=== PATIENT | female | born 1945 | race Caucasian/White ===

== ENCOUNTER 2024-04-06 07:05 | Day surgery (SDC) | payer MEDICARE, OTHER ==
[~2024-04-06] VITALS: Ht 154.9 cm; Wt 45.9 kg
[~2024-04-06 07:05] MED LIST: AMLODIPINE BES2.5 MG PO; CETIRIZINE HCL10 M1 PO; COREG25 MG PO; IBLOOD GLUCOSE TEST STRIP 1 EA TEST VI PRN; LACTATED RINGER'S 1,000 ML IV SCH; LIDOCAINE HCL 1% 5 ML SDV INJ ONE; LIPITOR20 MG; MIDAZOLAM HCL 5 MG/5 ML VIAL IV PRN; MYCO NAIL30 ML TOP; VITAMIN D350 MCG PO; fentaNYL citrate 100 MCG/2 ML VIAL IV PRN
[2024-04-06 07:43] VITALS: BP 116/65
[2024-04-06] MEDS ORDERED: fentaNYL citrate 100 MCG/2 ML VIAL ONE (08:04)
[2024-04-06] MEDS ORDERED: MIDAZOLAM HCL 5 MG/5 ML VIAL ONE (08:04)
--- NOTE | 2024-04-06 09:18 | NUR ---
04/06/24 0918 Anette,Marysol 0912 PT ARRIVED TO PACU ON 3L VIA NC, PT WAKES EASILY AND DENIES PAIN AND NAUSEA. PT ENCOAURGED TO PASS GAS AND IS RESTING WITH EYES CLOSED. RESP EVEN AND UNLABORED.
[2024-04-06 10:00] VITALS: BP 116/71
--- NOTE | 2024-04-07 06:30 | OR ---
[facility] [address] [place], [place] [address] Signed DATE OF OPERATION: 04/06/2024 SURGEON: Yamilex Bradshaw MD PREOPERATIVE DIAGNOSES: 1. Rectal bleeding and mucus discharge. 2. Diverticulosis. POSTOPERATIVE DIAGNOSES: 1. Mild proctitis. 2. 5 mm and 3 mm polyp in proximal right colon (snare). 3. 5 mm polyps x2 at base of cecum (snare). 4. Moderate pandiverticulosis. 5. Tortuous sigmoid colon. PROCEDURES: Colonoscopy with cold biopsies of the distal, middle and proximal rectum and hot biopsy along with snare polypectomy x2. ESTIMATED BLOOD LOSS: None. INDICATIONS: Jane is a 79-year-old female, asked to see me for a colonoscopy. I helped her with a colonoscopy in 2010 at the age of 65. This was her one and only screening colonoscopy. She had some diverticulosis. She had done well with Versed and fentanyl. She had been asked to follow up in 10 years. More recently, she had some bloody mucousy discharge from her anus. She told me it lasted a couple months or so. She thinks it is better. Her primary care provider asked her to come and see me for followup colonoscopy. She cannot recall any family history of colon cancer or polyps. She remains independent and drives around town and does well with her functional status. She had sold the house and now lives in an apartment. I had given her a brochure on colonoscopy. We had reviewed the nature of the test. There is risk including, but not limited to gas bloating, crampy abdominal pain, bleeding, perforation requiring surgery, and missed diagnosis. We also reviewed the written instructions for the bowel prep line by line. She also understands the need for IV conscious sedation. She understands an adult person has to take her home afterwards. She had expressed understanding and wished to proceed. DESCRIPTION OF PROCEDURE: Jane was taken into our endoscopy suite and placed in the left lateral decubitus Electronically Signed By: YAMILEX BRADSHAW MD 04/07/24 0630 PATIENT NAME: JANE HALE OPERATIVE REPORT DATE OF : 45 REPORT #: [id number] PHYSICIAN: YAMILEX BRADSHAW MD PCP: AZAM ALEJO DO REPORT IS CONFIDENTIAL AND NOT TO BE RELEASED WITHOUT AUTHORIZATION [facility] [address] [place], [place] [address] Signed position. She was given 5 mg of Versed and 75 mcg of fentanyl to cover the case. A digital rectal exam was performed and she had good sphincter tone. Really very little in the way of any external hemorrhoid tissue. There were no masses. The adult colonoscope was then introduced and she had some mild diffuse inflammation of the rectum. I went ahead and took a biopsy just above the anal canal, then middle and proximal rectum with cold biopsy forceps. The scope was then advanced to a very tortuous sigmoid colon and passed nicely around up to the cecum. It took a little extra sedation and abdominal compression get the scope around. Her prep was very good. She had two 5 mm polyps [id number] just next to the appendiceal orifice. We placed a wire over both and took those off and suctioned through the scope for pathologic review. In the proximal right colon, she had one 5 mm polyp which we required a combination of the snare and hot biopsy forceps and removed completely and then just to the side of it was a tiny 3 mm polyp easily removed with the hot biopsy forceps and placed in the same specimen jar. As the scope was withdrawn, she did have a few diverticula in the right colon, but mostly in the left and sigmoid colon. They were moderate in size, moderate in number and scattered about. Once again, her sigmoid colon is quite tortuous. Once in the rectum, the scope was retroflexed and there was no additional pathology noted above the anal canal. After this, the gas was suctioned out and the colonoscope removed. Jane tolerated the procedure quite well. RECOMMENDATIONS: I will see Jane back in my office in 7 to 14 days to review her results. Yamilex Bradshaw MD ALB/MODL /[id number] cc: MD Azam Avalos DO Copies: YAMILEX BRADSHAW MD Electronically Signed By: YAMILEX BRADSHAW MD 04/07/24 0630 PATIENT NAME: JANE HALE OPERATIVE REPORT DATE OF : 45 REPORT #: [id number] PHYSICIAN: YAMILEX BRADSHAW MD PCP: AZAM ALEJO DO REPORT IS CONFIDENTIAL AND NOT TO BE RELEASED WITHOUT AUTHORIZATION [address] [address] Signed AZAM ALEJO DO ~ Electronically Signed By: YAMILEX BRADSHAW MD 04/07/24 0630 PATIENT NAME: JANE HALE OPERATIVE REPORT DATE OF : 45 REPORT #: [id number] PHYSICIAN: YAMILEX BRADSHAW MD PCP: AZAM ALEJO DO REPORT IS CONFIDENTIAL AND NOT TO BE RELEASED WITHOUT AUTHORIZATION
--- NOTE | 2024-04-08 12:12 | PATH ---
[facility] [address] [facility] [place], [place] [address] Signed SPECIMEN(S): A DISTAL RECTUM BIOPSY SPECIMEN(S): B MID RECTUM BIOPSY SPECIMEN(S): C PROXIMAL RECTUM BIOPSY SPECIMEN(S): D PROXIMAL ASCENDING POLYP SPECIMEN(S): E CECUM POLYPS SPECIMEN SOURCE: A. DISTAL RECTUM BIOPSY B. MID RECTUM BIOPSY C. PROXIMAL RECTUM BIOPSY D. PROXIMAL ASCENDING POLYP E. CECUM POLYPS CLINICAL HISTORY: Rectal bleeding FINAL PATHOLOGIC DIAGNOSIS: A. Distal rectum, biopsy: - Focal mucosal erosion with associated mucosal hyperplasia and rare noncaseating granulomas. - Negative for active colitis or dysplasia. B. Mid rectum, biopsy: - Benign colonic mucosa with noncaseating granulomas within lamina propria, negative for active colitis or dysplasia. C. Proximal rectum, biopsy: - Unremarkable colonic mucosa, negative for active colitis, granulomas or dysplasia. D. Proximal ascending polyp, biopsies: - Fragments of tubular adenoma. E. Cecal polyps, biopsies: - Fragments of tubular adenoma. AMB MICROSCOPIC EXAMINATION: Histologic sections of all submitted blocks are examined by light microscopy. These findings, together with the gross examination, support the pathologic diagnosis. GROSS DESCRIPTION: A. The specimen, labeled and designated "Ignacio distal rectum biopsy," is received in formalin and consists of one meng soft tissue fragment, 0.3 cm. PATIENT NAME: MARIYA HALE PATHOLOGY DATE OF : 45 REPORT #: [id number] PHYSICIAN: [facility] PCP: MONTRELL ALEJO DO REPORT IS CONFIDENTIAL AND NOT TO BE RELEASED WITHOUT AUTHORIZATION [facility] [address] [place], [place] [address] Signed Entirely submitted in (A1). B. The specimen, labeled and designated "Ignacio, mid rectum biopsy," is received in formalin and consists of one meng soft tissue fragment, 0.4 cm. Entirely submitted in (B1). C. The specimen, labeled and designated "Ignacio, proximal rectum biopsy," is received in formalin and consists of one meng soft tissue fragment, 0.4 cm. Entirely submitted in (C1). D. The specimen, labeled and designated "Ignacio, proximal ascending polyp," is received in formalin and consists of three meng soft tissue fragments, ranging from 0.2-0.3 cm. Entirely submitted in (D1). E. The specimen, labeled and designated "Ignacio, cecum polyps," is received in formalin and consists of nine meng soft tissue fragments, ranging from 0.2-0.9 cm. Entirely submitted in (E1). VB (under the direct supervision of a pathologist) The Gross Description was prepared using a voice recognition system. The report was reviewed for accuracy; however, sound-alike word errors, addition and/or deletions may occur. If there is any question about this report, please contact Client Services. ADDITIONAL NOTES: Immunohistochemical and/or in situ hybridization studies if performed in this case included appropriate positive controls that reacted as expected. This test was developed and its performance characteristics determined by [facility]. It has not been cleared or approved by the U.S. Food and Drug Administration. The FDA has determined that such clearance or approval is not necessary. This test is used for clinical purposes. It should not be regarded as investigational or for research. [facility] is certified under the Clinical Laboratory Improvement Amendments of 1988 (CLIA) as qualified to perform high complexity clinical laboratory testing. PERFORMING LABORATORY: Technical component was performed by [facility], [address] [place] [address] (CLIA# [id number]). Professional interpretation was performed by [facility] - [facility] [address] [facility] [id number] Diagnostician: Amber Aviles MD Pathologist Electronically Signed 04/08/2024 PATIENT NAME: MARIYA HALEREGINA PATHOLOGY DATE OF : 45 REPORT #: [id number] PHYSICIAN: [facility] PCP: MONTRELL ALEJO DO REPORT IS CONFIDENTIAL AND NOT TO BE RELEASED WITHOUT AUTHORIZATION [address] [place] [address] Signed Copies: ~ PATIENT NAME: MARIYA HALE SHELDON PATHOLOGY DATE OF : 45 REPORT #: [id number] PHYSICIAN: [facility] PCP: MONTRELL ALEJO DO REPORT IS CONFIDENTIAL AND NOT TO BE RELEASED WITHOUT AUTHORIZATION
== END 2024-04-06 10:19 | disposition home or self-care (01) ==
LOC: DS 07:05
PROVIDERS: ATTEND Colon & Rectal Surgery
PROC: 0DBP8ZZ Excision of Rectum, Via Natural or Artificial Opening Endoscopic (ICD-10-PCS; 2024-04-06)
PROC: 0DBF8ZZ Excision of Right Large Intestine, Via Natural or Artificial Opening Endoscopic (ICD-10-PCS; principal; 2024-04-06 08:15)
DX: Z12.11 Encounter for screening for malignant neoplasm of colon (principal); D12.0 Benign neoplasm of cecum; D12.2 Benign neoplasm of ascending colon; K62.89 Other specified diseases of anus and rectum; K57.30 Diverticulosis of large intestine without perforation or abscess without bleeding; K63.89 Other specified diseases of intestine; K64.4 Residual hemorrhoidal skin tags; E78.01 Familial hypercholesterolemia; M85.80 Other specified disorders of bone density and structure, unspecified site; Z88.1 Allergy status to other antibiotic agents; Z88.8 Allergy status to other drugs, medicaments and biological substances; Z79.899 Other long term (current) drug therapy
CPT/HCPCS: 99153; G0500; J2250; J3010

== ENCOUNTER 2024-12-29 21:12 | Emergency (ER) | payer MEDICARE, OTHER ==
[~2024-12-29] VITALS: Ht 154.9 cm; Wt 49.8 kg
[~2024-12-29 21:12] MED LIST changes: -IBLOOD GLUCOSE TEST STRIP 1 EA TEST VI PRN; -LACTATED RINGER'S 1,000 ML IV SCH; -LIDOCAINE HCL 1% 5 ML SDV INJ ONE; -MIDAZOLAM HCL 5 MG/5 ML VIAL IV PRN; -fentaNYL citrate 100 MCG/2 ML VIAL IV PRN
[2024-12-29] MEDS ORDERED: fentaNYL citrate 100 MCG/2 ML VIAL IV ONE (21:45)
[2024-12-29] MEDS ORDERED: HYDROCODONE BIT/ACETAMINOPHEN 5/325 MG 1 TAB HOME.PACK PO ONE (22:00)
[2024-12-29] MEDS ORDERED: HYDROCODON-ACE1 EA10 PO (22:07)
[2024-12-29] MEDS ORDERED: ondansetron HCL 4 MG/2 ML VIAL IV ONE (22:15)
[2024-12-29 23:30] VITALS: BP 102/64
== END 2024-12-29 23:30 | disposition home or self-care (01) ==
LOC: ED 21:12
DX: S42.302A Unspecified fracture of shaft of humerus, left arm, initial encounter for closed fracture (principal); I10 Essential (primary) hypertension; W01.0XXA Fall on same level from slipping, tripping and stumbling without subsequent striking against object, initial encounter; Z79.899 Other long term (current) drug therapy; Z88.0 Allergy status to penicillin; Z88.8 Allergy status to other drugs, medicaments and biological substances
CPT/HCPCS: 73030; 96374; 96375; 99283-25; A9270; J2405; J3010

== ENCOUNTER 2025-01-07 05:32 | Day surgery (SDC) | payer OTHER, MEDICARE ==
[2025-01-05 13:37] VITALS: BP 110/76
[~2025-01-07] VITALS: Ht 154.9 cm; Wt 48.0 kg
[~2025-01-07 05:32] MED LIST changes: +HYDROCODON-ACE1 EA10 PO; +LACTATED RINGER'S 1,000 ML IV SCH; -LIPITOR20 MG; +LIPITOR20 MG PO; +TYLENOL EXTRA500 MG PO
[2025-01-07 06:01] VITALS: BP 123/63
[2025-01-07] MEDS ORDERED: DEXAMETHASONE SOD PHOS 4 MG/ML VIAL ONE ×2 (06:43→07:00)
[2025-01-07] MEDS ORDERED: Ropivacaine HCl 0.5% 30 ML VIAL ONE (06:43)
[2025-01-07] MEDS ORDERED: propofoL 200 MG/20 ML VIAL ONE (06:43)
[2025-01-07] MEDS ORDERED: LIDOCAINE HCL 2% 5 ML SDV ONE (06:43)
[2025-01-07] MEDS ORDERED: dexmedeTOMIDine HCl 200 MCG/2 ML VIAL ONE (06:44)
[2025-01-07] MEDS ORDERED: SODIUM CHLORIDE 0.9% 20 ML IV ONE (06:45)
[2025-01-07] MEDS ORDERED: TRANEXAMIC ACID IN NACL,ISO-OS 1,000 MG/100 ML PIGGYBACK IV SCH (07:00)
[2025-01-07] MEDS ORDERED: IBLOOD GLUCOSE TEST STRIP 1 EA TEST VI PRN ×2 (07:00→07:45)
[2025-01-07] MEDS ORDERED: LIDOCAINE HCL 1% 5 ML SDV INJ ONE (07:00)
[2025-01-07] MEDS ORDERED: CEFAZOLIN SODIUM 2 GM/20 ML SYR IV SCH (07:00)
[2025-01-07] MEDS ORDERED: ondansetron HCL 4 MG/2 ML VIAL ONE (07:00)
[2025-01-07] MEDS ORDERED: fentaNYL citrate 100 MCG/2 ML VIAL ONE (07:20)
[2025-01-07] MEDS ORDERED: ACETAMINOPHEN 1,000 MG/100 ML VIAL ONE (07:30)
[2025-01-07] MEDS ORDERED: NALOXONE HCL 0.4 MG SYR IV PRN (07:45)
[2025-01-07] MEDS ORDERED: KETOROLAC TROMETHAMINE 30 MG/ML VIAL IV PRN (07:45)
[2025-01-07] MEDS ORDERED: fentaNYL citrate 50 MCG/ML SDV IV PRN (07:45)
[2025-01-07] MEDS ORDERED: ondansetron HCL 4 MG/2 ML VIAL IV PRN (07:45)
[2025-01-07] MEDS ORDERED: HYDROCODON-ACE1 EA10 PO (08:22)
[2025-01-07] MEDS ORDERED: HYDROCODONE/ACETA 7.5/325 TAB PO PRN (08:30)
--- NOTE | 2025-01-07 08:46 | NUR ---
01/07/25 0846 Anette,Marysol 0837 PT ARRIVED TO PACU ON RA, PT WAKES EASILY ANS DENIES PAIN AND NAUSEA. PT REORIENTED TO PACU. ICE IN PLACE ON LEFT UPPER ARM. PT REPORTS NUMB FINGERS AND EDUCATION GIVEN. 0844 PT ASLEEP OFF AND ON. O2 SAT DECREASED TO 88%, PT WAKES TO VERBAL STIMULI AND DEEP BREAHTING ENCOURAGED 2L NC PLACED. O2 INCREASED TO MID 90S. PT CONTINUES TO DENY CONCERNS.
[2025-01-07 09:03] VITALS: BP 120/70
--- NOTE | 2025-01-07 09:05 | NUR ---
LE 0900: PT IS BACK TO DS FROM PACU. SHE IS SLEEPY, BUT EASILY AROUSABLE. FAMILY IS AT THE BEDSIDE. CALL LIGHT WITHIN REACH. WATER ON BEDSIDE TABLE WITHIN REACH. SOME EDUCATION IS GIVEN TO FAMILY REGARDING THE SHOULDER IMMOBILIZER. DC CRITERIA REVIEWED WITH PT AND FAMILY. UNDERSTANDING IS VERBALIZED.
[2025-01-07 10:01] VITALS: BP 123/65
--- NOTE | 2025-01-07 10:31 | OR ---
[facility] [address] [facility] [place] [address] Signed DATE OF OPERATION: 01/07/2025 SURGEON: Denise Soto MD PREOPERATIVE DIAGNOSIS: Left proximal humerus fracture, 100% displaced. POSTOPERATIVE DIAGNOSIS: Left proximal humerus fracture, 100% displaced. PROCEDURE PERFORMED: Open reduction and internal fixation of left proximal humerus. COLD ROLL OPERATOR: Shannan Armas PA-C. ANESTHESIA: General. BLOOD LOSS: 160 mL. IMPLANTS: Synthes short proximal humerus plate with a variety of screws. BRIEF HISTORY: Jane is a 79-year-old female with a ground level fall fracturing her proximal humerus. This was 100% displaced and angulated. Risks and benefits of operative treatment were discussed with her and she elected to proceed. DESCRIPTION OF PROCEDURE: Once consent was obtained, she was taken to the operating room. She was placed on the OR bed and all downside pressure points were well padded. The arm was then prepped and draped in a standard sterile fashion after establishing the general anesthetic. The shoulder was approached through a standard deltopectoral approach, carried through the skin and subcutaneous tissue. The deltopectoral interval was identified, however, the cephalic vein was not found. The interval was then opened up using blunt dissection down to the bone. The subacromial and subdeltoid spaces were then developed using blunt dissection. We were able then to distract the fracture and cleared of debris and a small amount of muscle tissue. Then using a [place] elevator as a shoe horn, we were able Electronically Signed By: DENISE SOTO MD 01/07/25 1031 PATIENT NAME: JANE HALE OPERATIVE REPORT DATE OF : 45 REPORT #: [id number] PHYSICIAN: DENISE SOTO MD PCP: MONTRELL ALEJO DO REPORT IS CONFIDENTIAL AND NOT TO BE RELEASED WITHOUT AUTHORIZATION [facility] [address] [place], [place] [address] Signed to shoe horn it back into position and hold it in position while we passed a K-wire. Multiple attempts of reduction were undertaken to get it done. Once this was completed, the proximal humeral plate was fashioned to fit the lateral side of the humerus and was held with the central screw distally. The position was then adjusted under biplanar fluoroscopy and the two proximal inner locking screws were placed again under image intensifier guidance. Two screws were placed at the fracture site and the remainder of the distal screws were drilled and appropriate length screws were placed. Final radiographs showed good position of the plate fracture, reduction and alignment. One screw was too long and this was removed and replaced with a shorter screw. Once this was completed, the wound was copiously irrigated with normal saline. The deltopectoral interval was closed using 0 Stratafix, subcutaneous tissue with 2-0 Stratafix and the skin with 3-0 Stratafix. Wound was sealed with LiquiBand and Steri-Strips and was dressed with an Acticoat-7 dressing. She tolerated the procedure well. All sponge, needle, and instrument counts were correct. Denise Soto MD BA/MODL /[id number] Copies: ~ Electronically Signed By: DENISE SOTO MD 01/07/25 1031 PATIENT NAME: JANE HALE OPERATIVE REPORT DATE OF : 45 REPORT #: [id number] PHYSICIAN: DENISE SOTO MD PCP: MONTRELL ALEJO DO REPORT IS CONFIDENTIAL AND NOT TO BE RELEASED WITHOUT AUTHORIZATION
--- NOTE | 2025-01-07 10:59 | NUR ---
1000 HOURLY ROUNDING DONE WITH PT. VITALS TAKEN. IV ASSESSED. SON AT BEDSIDE. PT HAS BEEN ABLE TO TOLERATE PO FLUIDS AND JELLO. PT REPORTS NO NAUSEA AND 1/10 PAIN AT THIS TIME. 1020 PT ABLE TO AMBULATE TO BATHROOM AND VOID 300 MLS OF CLEAR YELLOW URINE. PT ABLE TO AMBULATE BACK TO ROOM WITH STEADY GAIT. ASSISTED PT IN GETTING DRESSED. OPERATIVE LIMB IN IMMOBILIZER. 1025 IV REMOVED FOR DISCHARGE. DISCHARGE INFORMATION GONE OVER WITH PT, AND SON. NO QUESTIONS AT THIS TIME. 1032 PT DISCHARGED FROM DAY SURGERY VIA WHEELCHAIR TO THE FRONT OF THE HOSPITAL TO PT'S SON'S CAR. PT SON HAS DISCHARGE IN HAND.
[2025-01-07] MEDS ORDERED: SEVOFLURANE 250 ML BTL INH ONE (13:20)
== END 2025-01-07 10:32 | disposition home or self-care (01) ==
LOC: DS 05:32
PROVIDERS: ATTEND Specialist
PROC: 0PSG04Z Reposition Left Humeral Shaft with Internal Fixation Device, Open Approach (ICD-10-PCS; principal; 2025-01-07 07:00)
DX: S42.202A Unspecified fracture of upper end of left humerus, initial encounter for closed fracture (principal); W01.0XXA Fall on same level from slipping, tripping and stumbling without subsequent striking against object, initial encounter; G89.18 Other acute postprocedural pain; I10 Essential (primary) hypertension; E78.00 Pure hypercholesterolemia, unspecified; Z88.0 Allergy status to penicillin; Z79.899 Other long term (current) drug therapy
CPT/HCPCS: 01630; 64415; 73060; 76942; C1713; J0131; J0690; J1100; J2003; J2405; J2704; J2795; J3010; J7121